=== PATIENT | female | born 1990 | race Caucasian/White ===

== ENCOUNTER 2017-03-15 23:01 | Emergency (ER) | payer SELFPAY ==
[~2017-03-15] VITALS: Ht 162.6 cm; Wt 86.0 kg
[2017-03-15 23:04] VITALS: Ht 162.6 cm; Wt 86.0 kg
== END 2017-03-16 03:55 | disposition left against medical advice (07) ==
LOC: FTE 23:01
DX: Z53.21 Procedure and treatment not carried out due to patient leaving prior to being seen by health care provider (principal)

== ENCOUNTER 2017-04-07 00:08 | Emergency (ER) | payer SELFPAY ==
[~2017-04-07] VITALS: Ht 172.7 cm; Wt 77.3 kg
[2017-04-07 00:17] VITALS: Ht 172.7 cm; Wt 77.3 kg
== END 2017-04-07 01:34 | disposition left against medical advice (07) ==
LOC: E/R 00:08
DX: Z53.21 Procedure and treatment not carried out due to patient leaving prior to being seen by health care provider (principal)